=== PATIENT | male | born 2000 | race Caucasian/White ===

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

== ENCOUNTER 2019-03-17 07:51 | Emergency (ER) | payer OTHER ==
[~2019-03-17] VITALS: Ht 177.8 cm; Wt 113.2 kg
[2019-03-17 07:58] VITALS: BP 142/81
--- NOTE | 2019-03-17 08:00 | NUR ---
PT TO ER BED 6
--- NOTE | 2019-03-17 08:05 | NUR ---
BIB SELF. AAO X4 C/O ABD PAIN X1 WEEK. PT REPORTS CONSTANT "HITTING" PAIN IN RUQ THAT RADIATES ACROSS UPPER ABD AT 7/10 AND INCREASES WITH INSPIRATION AND LIFTING OBJECTS, PT STATES DIZZINESS. PT TX WITH IBUPROFEN TODAY W/ NO RELIEF. LAST BM WAS 03/14. +N/V. LAST FOOD INTAKE TODAY AM. PT DENIES FEVER, HEMATURIA. ABDOMEN TENDER TO TOUCH. HOB UP. BED SIDE RAILS UP X1. ON LOW BED POSITION, LOCKED. ER MADE AWARE OF PT STATUS.
[2019-03-17] MEDS ORDERED: NACL 0.9% 1,000 ML IV SCH (08:23)
[2019-03-17] MEDS ORDERED: NACL 0.9% 1,000 ML IV ONE (08:23)
--- NOTE | 2019-03-17 08:23 | NUR ---
DR CHILDERS AT BEDSIDE FOR PT EVALUATION
[2019-03-17] MEDS ORDERED: PROMETHAZINE 25 MG/ML VIAL IM ONE (08:25)
[2019-03-17] MEDS ORDERED: GLYCOPYRROLATE 0.2 MG/ML VIAL IV ONE (08:25)
[2019-03-17] MEDS ORDERED: KETOROLAC 30 MG/ML VIAL IVP ONE (08:25)
[2019-03-17 08:59] LABS: BASOPHILS # (AUTO) 0.1 K/uL (0.00-0.22); BASOPHILS % (AUTO) 1.2 % (0.0-2.0); EOSINOPHILS # (AUTO) 0.2 K/uL (0-0.4); EOSINOPHILS % (AUTO) 2.7 % (0.0-4.0); HEMATOCRIT 44.1 % (36-52); HEMOGLOBIN 14.8 g/dL (12.0-18.0); LYMPHOCYTES # (AUTO) 2.8 K/uL (2.0-11.5); LYMPHOCYTES % (AUTO) 47.2 % (20.5-51.1); MEAN CORPUSCULAR HEMOGLOBIN 28 pg (27-31); MEAN CORPUSCULAR HGB CONC 34 g/dL (33-37); MEAN CORPUSCULAR VOLUME 84.2 fL (80-94); MONOCYTES # (AUTO) 0.5 K/uL (0.8-1.0); MONOCYTES % (AUTO) 9.1 % (1.7-9.3); NEUTROPHILS # (AUTO) 2.4 K/uL (1.8-7.7); NEUTROPHILS % (AUTO) 39.8 % (42.2-75.2); PLATELET COUNT (AUTO) 331 K/uL (140-450); RED BLOOD CELL COUNT(AUTO) 5.24 MIL/uL (4.20-6.10); RED CELL DISTRIBUTION WIDTH 13.6 % (11.6-13.7)
--- NOTE | 2019-03-17 09:00 | NUR ---
PT TAKEN TO CT VIA BED BY INFORMATION SYSTEMS PROJECT MANAGER
[2019-03-17 09:03] LABS: APPEARANCE,URINE CLEAR (CLEAR); BILIRUBIN,URINE NEGATIVE (NEGATIVE); BLOOD, URINE NEGATIVE (NEGATIVE); COLOR,URINE YELLOW (YELLOW); LEUKOCYTE ESTERASE ,URINE NEGATIVE (NEGATIVE); NITRITE, URINE NEGATIVE (NEGATIVE); UGLUCOSE NEGATIVE (NEGATIVE)
[2019-03-17 09:10] LABS: BARBITURATE, URINE NEG. ng/ml (NEG <=200); BENZODIAZEPINE, URINE NEG. ng/mL (NEG <=200); CANNABINOID, URINE NEG. ng/mL (NEG <=50); COCAINE, URINE NEG. ng/mL (NEG <=300); OPIATE, URINE POS. ng/mL (NEG <=2000); PHENCYCLIDINE SCREEN,URINE NEG. ng/mL (NEG <=25)
[2019-03-17 09:10] LABS: ANION GAP 13.4 (8-16); CARBON DIOXIDE 26.6 mmol/L (21-32)
--- NOTE | 2019-03-17 09:14 | NUR ---
PT TAKEN BACK TO ROOM VIA BED BY TIER LIFT OPERATOR
[2019-03-17 09:16] LABS: TOTAL BILIRUBIN 0.3 mg/dL (0.0-1.0)
[2019-03-17 09:20] LABS: RBC,URINE NONE SEEN /HPF (0-5); WBC,URINE 0-5 /HPF (0-5)
[2019-03-17] MEDS ORDERED: MORPHINE SULFATE 4 MG/ML SYR IVP ONE (09:40)
[2019-03-17] MEDS ORDERED: diphenhydrAMINE 50 MG/ML VIAL IVP ONE (09:40)
[2019-03-17 11:38] VITALS: BP 120/70
--- NOTE | 2019-03-17 11:38 | NUR ---
Patient discharged with v/s stable. Written and verbal after care instructions given and explained. Patient alert, oriented and verbalized understanding of instructions. Ambulatory with to car. All questions addressed prior to discharge. ID band removed. Patient advised to follow up with PMD. Rx of Doxycycline, Tramadol Hcl given. Patient educated on indication of medication including possible reaction and side effects. Opportunity to ask questions provided and answered.
== END 2019-03-17 11:38 | disposition home or self-care (01) ==
LOC: MED 07:51
DX: I88.0 Nonspecific mesenteric lymphadenitis (principal); Z90.49 Acquired absence of other specified parts of digestive tract; Z88.5 Allergy status to narcotic agent
CPT/HCPCS: 36415; 74176; 76705; 80053; 80305; 81001; 82150; 82977; 83690; 85025; 96361; 96372; 96374; 96375; 99284; J1200; J1885; J2270; J2550; J3490; J7030; Q0092

== ENCOUNTER 2019-08-18 14:58 | Emergency (ER) | payer OTHER ==
[~2019-08-18] VITALS: Ht 175.3 cm; Wt 104.3 kg
[2019-08-18 15:10] VITALS: BP 145/81
--- NOTE | 2019-08-18 15:12 | NUR ---
PT ARRIVED TO ED C/O RIGHT FLANK PAIN X 2 MONTHS. RATES PAIN 8/10 AND DESCRIBES IT BURNING. PT STATES HE HAS DYSURIA BUT NO BLOOD IN URINE. HAS RIGHT FLANK PAIN. DENIES ANY TRUAMA OR INJURY. VSS. HE DENIES ANY FEVER. HAD 2 EPSIDOES OF VOMITTING X THIS AM. ALSO HAS BLADDER TENDERNESS. PMH: TONSILECTOMY, AND APPENDECTOMY.
[2019-08-18] MEDS ORDERED: MORPHINE SULFATE 4 MG/ML SYR IM ONE (15:55)
[2019-08-18] MEDS ORDERED: ONDANSETRON 4 MG ODT PO ONE (15:55)
[2019-08-18 16:16] LABS: BASOPHILS # (AUTO) 0.1 K/uL (0.00-0.22); BASOPHILS % (AUTO) 0.8 % (0.0-2.0); EOSINOPHILS # (AUTO) 0.2 K/uL (0-0.4); EOSINOPHILS % (AUTO) 2.6 % (0.0-4.0); HEMATOCRIT 45.2 % (36-52); HEMOGLOBIN 14.9 g/dL (12.0-18.0); LYMPHOCYTES # (AUTO) 2.9 K/uL (2.0-11.5); LYMPHOCYTES % (AUTO) 37.2 % (20.5-51.1); MEAN CORPUSCULAR HEMOGLOBIN 29 pg (27-31); MEAN CORPUSCULAR HGB CONC 33 g/dL (33-37); MONOCYTES # (AUTO) 0.6 K/uL (0.8-1.0); MONOCYTES % (AUTO) 7.8 % (1.7-9.3); NEUTROPHILS # (AUTO) 4.1 K/uL (1.8-7.7); NEUTROPHILS % (AUTO) 51.6 % (42.2-75.2); PLATELET COUNT (AUTO) 301 K/uL (140-450); RED CELL DISTRIBUTION WIDTH 13.9 % (11.6-13.7); WHITE BLOOD COUNT (AUTO) 7.9 K/uL (4.8-10.8)
--- NOTE | 2019-08-18 16:17 | NUR ---
PT WHEELCHAIR TO CT.
--- NOTE | 2019-08-18 16:30 | NUR ---
PT RETURNED FROM CT.
[2019-08-18 16:34] LABS: ANION GAP 13.8 (8-16); CREATININE 0.9 mg/dL (0.7-1.3); POTASSIUM 4.8 mmol/L (3.5-5.1)
[2019-08-18 16:41] LABS: ALBUMIN 4.1 g/dL (3.4-5.0); TOTAL BILIRUBIN 0.2 mg/dL (0.0-1.0)
[2019-08-18 17:38] VITALS: BP 139/84
== END 2019-08-18 17:37 | disposition home or self-care (01) ==
LOC: MED 14:58
DX: R10.9 Unspecified abdominal pain (principal); M62.830 Muscle spasm of back; Z90.49 Acquired absence of other specified parts of digestive tract; Z88.5 Allergy status to narcotic agent; Z88.6 Allergy status to analgesic agent
CPT/HCPCS: 36415; 74176; 80053; 81002; 85025; 96372; 99284; J2270; Q0162